=== PATIENT | female | born 1995 | race Caucasian/White ===

== ENCOUNTER 2021-06-11 07:03 | Outpatient (CLI) | payer BC, SELFPAY ==
[2021-06-11 07:26] LABS: Hematocrit 44.6 % (37.0-47.0); Hemoglobin 14.1 g/dL (12.0-15.0); Mean Corpuscular HGB Conc 31.6 g/dl (32-36); Mean Corpuscular Hemoglobin 31.7 pg (26-34); Mean Corpuscular Volume 100.2 fl (80-100); Platelet Count Result 131 k/mm3 (150-375); Red Blood Count 4.45 M/mm3 (4.2-5.4); Red Cell Distribution Width 13.3 % (11.5-14.5); White Blood Count 5.4 K/mm3 (4.5-10.0)
[2021-06-11 07:38] LABS: Alanine Aminotransferase 16 U/L (4-35); Albumin Level 4.7 g/dL (3.5-5.1); Alkaline Phosphatase 44 U/L (38-126); Anion Gap 6 mmol/L (8-16); Aspartate Amino Transferase 23 U/L (14-36); Bilirubin,Total 1.5 mg/dL (0.2-1.3); Blood Urea Nitrogen 8 mg/dL (7-17); Calcium 9.7 mg/dL (8.4-10.2); Carbon Dioxide 26 mmol/L (22-30); Chloride 109 mmol/L (98-107); Cholesterol 118 mg/dL (0-200); Estimated Glomerular Filt Rate > 60; Glucose 89 mg/dL (65-110); HDL Direct 49 mg/dL; Potassium 5.1 mmol/L (3.4-5.0); Sodium 141 mmol/L (137-145); Triglycerides 40 mg/dL (<150)
[2021-06-11 07:49] LABS: LDL Cholesterol Direct 57 mg/dL
[2021-06-11 08:44] LABS: Folic Acid 17.1 ng/mL (2.76->20)
== END 2021-06-11 07:04 | disposition home or self-care (01) ==
LOC: ANHLAB 07:05
PROVIDERS: PCP Physician Assistant; Visit Provider Physician Assistant
DX: Z00.00 Encounter for general adult medical examination without abnormal findings (principal)
CPT/HCPCS: 36415; 80053; 80061; 82607; 82746; 84443; 85027

== ENCOUNTER 2021-07-04 11:36 | Emergency (ER) | payer BC, SELFPAY ==
[2021-07-04 11:45] VITALS: BP 90/60; PULSE 75; RESP 16; TEMP 36.8; O2SAT 100
--- NOTE | 2021-07-04 11:57 | ED.LOWEXIN ---
HPI - Extremity Injury (Lower) General Chief Complaint: Extremity Injury, Lower Stated Complaint: Rt lower leg pain Source: patient and RN notes reviewed Limitations: no limitations History of Present Illness HPI Narrative: The patient, previously on mood meds, presents with right rojas pain. Patient states she bumped her leg against her car prior to arrival; she complains of mild pain and swelling at the middle third of her tibia. No bleeding, deformity, weakness, numbness; symptoms are mild, better with rest or elevation Related Data Home Medications Medication Instructions Recorded Confirmed etonogestrel 68 mg subdermal 1 implant SUBDERMAL ONCE 02/05/21 07/04/21 implant multivitamin with minerals 1 tablet PO DAILY 02/05/21 07/04/21 Allergies Allergy/AdvReac Type Severity Reaction Status Date / Time No Known Allergies Allergy Verified 07/04/21 11:41 Review of Systems Review of Systems: General/Constitutional: No weight loss,fever Eyes: N0: Redness,discharge Ears/Nose/Throat: No: Epistaxis,ear discharge Respiratory: Denies: Hemoptysis Gastrointestinal: No Vomiting, Bleeding-rectal Skin: No Lumps, eruption Neurologic: No Focal Weakness,Sz Hematologic: Denies: Petechiae/Purpura Psychiatric: No: Suicida ideationl All Other Systems: Reviewed and Negative [facility] Past Medical History Medical History Allergies Anemia Depression GERD (gastroesophageal reflux disease) Migraine Family History Family History Father Alcoholism Cerebrovascular accident Mother Asthma Depression Anxiety Cerebrovascular accident Sibling Asthma Social History Social History Smoking status: Never smoker Alcohol intake: current Substance use: unknown Gender identity (if verbalized by the patient): Female Comments At time of signature, agree with nursing past medical, surgical, social and family history. There is no relevant family history pertinent to the presenting complaint Exam Narrative: General Appearance: Well appearing, Conjunctiva clear Ears: External ear normal, Auditory canal normal Nose: Normal nose, Nares clear Mouth/Throat: Normal appearing, Normal lips, Supple Respiratory: Airway patent, No respiratory distress MS tib-fib: Normal strength (mostly intact, limited flexion/extension by pain), Tenderness (anterior, with mild decreased ROM), Swelling (mild anterior), Other (no anterior drawer, no collateral laxity) Skin: Warm, Dry, Normal color Neurological: A&O x3, Speech clear, CN II-XII intact Psychiatric: Normal mood, Normal affect Course Vital Signs Vital signs: Vital Signs Temperature 98.2 F 07/04/21 11:45 Pulse Rate 75 07/04/21 11:45 Respiratory Rate 16 07/04/21 11:45 Blood Pressure 90/60 L 07/04/21 11:45 Pulse Oximetry 100 07/04/21 11:45 Temperature 98.2 F 07/04/21 11:45 Pulse Rate 75 07/04/21 11:45 Respiratory Rate 16 07/04/21 11:45 Blood Pressure 90/60 L 07/04/21 11:45 Pulse Oximetry 100 07/04/21 11:45 Discharge Plan Discharge Clinical Impression: Hematoma, Leg pain, right Patient Disposition: Home, Self-Care Condition: Stable Instructions: Hematoma (ED) Prescriptions: New acetaminophen-codeine 300-30 mg tablet 1 - 1.5 tablet PO HS PRN (Reason: pain) Qty: 10 RF: 0 No Action multivitamin with minerals [Hair,Skin and Nails] Tablet 1 tablet PO DAILY RF: 0 Nexplanon 68 mg implant 1 implant subdermal ONCE RF: 0 escitalopram oxalate 10 mg tablet 10 mg PO DAILY Qty: 90 RF: 3 cyclobenzaprine 10 mg tablet 10 mg PO QHS PRN (Reason: muscle spasm) Qty: 30 RF: 0 alprazolam 0.5 mg tablet 0.5 mg PO BID PRN (Reason: anxiety) Qty: 90 RF: 0 Follow-up/Referrals: Kayode Contreras PA-C [Primary Care Provider] -
== END 2021-07-04 12:15 | disposition home or self-care (01) ==
PROVIDERS: Emergency Provider Emergency Medicine; PCP Physician Assistant
DX: S80.11XA Contusion of right lower leg, initial encounter (principal); W22.8XXA Striking against or struck by other objects, initial encounter; F32.9 Major depressive disorder, single episode, unspecified; K21.9 Gastro-esophageal reflux disease without esophagitis
CPT/HCPCS: 99213; G0463

== ENCOUNTER 2022-08-15 11:47 | Emergency (ER) | payer OTHER, SELFPAY ==
[2022-08-15 12:21] VITALS: BP 109/74; PULSE 74; RESP 20; TEMP 36.4; O2SAT 100
--- NOTE | 2022-08-15 13:07 | ED.DENTAL ---
HPI - Dental/Oral General Chief complaint: Dental/Oral Stated complaint: Lt Facial Swelling Time Seen by Provider: 08/15/22 11:50 Source: patient Mode of arrival: ambulatory Limitations: no limitations History of Present Illness HPI Narrative: 26-year-old female presents to [facility] with complaints of pain and swelling to her left lower jaw and left lower tooth since this morning. Patient reports that she had a deep cleaning by her dental office 4 days ago and started with the symptoms this morning. Patient reports that she attempted to call her dentist this morning but was unable to reach them. Patient denies fever, bodies, chills, nausea, vomiting or diarrhea. Patient has been taking [id number] ibuprofen with minimal relief MD Complaint: tooth pain Location: Tooth # (18) Onset (ago): hour(s) (8) Duration: constant Relieving factors: NSAIDs Exacerbating factors: chewing Treatment prior to arrival: oral analgesic Related Data Home Medications Medication Instructions Recorded Confirmed etonogestrel 68 mg subdermal 1 implant subdermal ONCE 02/05/21 08/15/22 implant (Nexplanon) Allergies Allergy/AdvReac Type Severity Reaction Status Date / Time No Known Allergies Allergy Verified 08/15/22 12:38 Review of Systems Constitutional: Constitutional: Denies chills, Denies fatigue, Denies fever(s) and Denies weakness ENT: Comments: dental pain and jaw swelling Cardiovascular: Cardiovascular: Denies chest pain, Denies rapid heart rate, Denies radiating jaw, neck or arm pain and Denies slow heart rate Respiratory: Respiratory: Denies cough, Denies dyspnea and Denies wheezing Gastrointestinal: Gastrointestinal: Denies diarrhea, Denies nausea and Denies vomiting Integumentary/Breasts: Skin/Breast: Denies rash PMFSH Past Medical History Medical History Allergies Anemia Depression GERD (gastroesophageal reflux disease) Migraine Family History Family History Father Alcoholism Cerebrovascular accident Bipolar 1 disorder Schizophrenia Mother Depression Anxiety COPD (chronic obstructive pulmonary disease) DDD (degenerative disc disease) Sibling Asthma Social History Social History Social History: caffeine use- 2 sodas and 1/2 pot of coffee per day Smoking status: Current every day smoker Alcohol intake: current Alcohol use details: social use- wine coolers Substance use: unknown Additional living arrangements comments: lives with Fiance and 2 children- 1 M and 1 F 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 There is no relevant family history pertinent to the presenting complaint. Exam Const: General: healthy appearing Nutritional Appearance: well nourished Orientation/consciousness: patient oriented x3 Limitations: no limitations HENMT: Head: normal to inspection Face and sinus: normal facial exam Mouth: Yes lip normal and Yes moist mucous membranes Teeth and gingiva: abnormal tooth and associated gingiva (Mild erythema and swelling to gums surrounding tooth #18 and 19. ) Other: No dental abscess noted. There is mild swelling noted to left jaw region. Resp: Effort & Inspection: normal respiratory effort and not labored Auscultation: clear to auscultation bilaterally, no crackles, no rhonchi and no wheezes Cardio: Rate: regular rate Rhythm: regular rhythm Heart sounds: no murmurs Skin: General skin exam: normal color Rashes: no rashes Wounds: no wounds Neuro: General: patient oriented x3 Speech: normal speech Gait exam (Neuro): Normal gait
== END 2022-08-15 13:14 | disposition home or self-care (01) ==
PROVIDERS: Emergency Provider Nurse Practitioner Family; PCP Physician Assistant
DX: K08.89 Other specified disorders of teeth and supporting structures (principal); F17.200 Nicotine dependence, unspecified, uncomplicated; K21.9 Gastro-esophageal reflux disease without esophagitis
CPT/HCPCS: 99213; G0463

== ENCOUNTER 2022-10-11 19:08 | Emergency (ER) | payer SELFPAY ==
[2022-10-11 19:16] VITALS: BP 118/64; PULSE 80; RESP 18; TEMP 36.6; O2SAT 100
--- NOTE | 2022-10-11 19:31 | ED.SKABFB ---
HPI - Skin/Abscess/Foreign Bdy General Chief complaint: Skin/Abscess/Foreign Body Stated complaint: cyst Time Seen by Provider: 10/11/22 19:24 Source: patient and old records reviewed Mode of arrival: ambulatory Limitations: no limitations History of Present Illness HPI narrative: Patient presents today with a 2 day history of an abscess to her right buttock. Reports that is recurrent in the same area. She is currently on a course of clindamycin prescribed by her PCP. She has seen a surgeon in the past for the same abscess, but it was not inflamed at the time so no treatment was given. She is hoping to get the area lanced today as it is difficult for her to sit due to pain. Related Data Home Medications Medication Instructions Recorded Confirmed etonogestrel 68 mg subdermal 1 implant subdermal ONCE 02/05/21 10/11/22 implant (Nexplanon) Allergies Allergy/AdvReac Type Severity Reaction Status Date / Time No Known Allergies Allergy Verified 10/11/22 19:21 Review of Systems Review of Systems: CONSTITUTIONAL: Denies body aches, fever, chills, or sweats. EYES: Denies visual changes, redness, or discharge. ENT: Denies rhinorrhea, congestion, sore throat, or otalgia. CARDIOVASCULAR: Denies chest pain, palpitations, or edema. RESPIRATORY: Denies cough or dyspnea. GASTROINTESTINAL: Denies abdominal pain, nausea, vomiting, or diarrhea. GENITOURINARY: Denies dysuria or hematuria. SKIN: Denies rash, itching, or wounds.+ right buttock abscess MUSCULOSKELETAL: Denies back pain, joint pain, or myalgia. NEUROLOGIC: Denies headache, numbness, tingling, or weakness. PSYCH: Denies depression or anxiety. [facility] Past Medical History Medical History Allergies Anemia Depression GERD (gastroesophageal reflux disease) Migraine Family History Family History Father Alcoholism Cerebrovascular accident Bipolar 1 disorder Schizophrenia Mother Depression Anxiety COPD (chronic obstructive pulmonary disease) DDD (degenerative disc disease) Sibling Asthma Social History Social History Social History: caffeine use- 2 sodas and 1/2 pot of coffee per day Smoking status: Current every day smoker Alcohol intake: current Alcohol use details: social use- wine coolers Substance use: unknown Additional living arrangements comments: lives with Fiance and 2 children- 1 M and 1 F 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 HEAD: Normocephalic, atraumatic. EYES: EOMI. No redness or drainage. Conjunctivae normal. ENT: Mucous membranes pink and moist. NECK: Normal AROM. CHEST: No respiratory distress. EXTREMITIES: Normal range of motion. No edema. SKIN: Warm, dry, no rash. Capillary refill normal. Normal skin turgor. Approximately 1.5 cm area of erythema with induration to the right medial buttock, posterior to the rectum. There is it 1 cm area of fluctuance in the center. Area is tender to palpation. NEURO: No focal deficits. Alert and oriented x3. Gait steady. PSYCH: Normal affect. No signs of depression or anxiety. Course Course Level of Care: Express Care Visit Vital Signs Vital signs: Vital Signs Temperature 97.9 F 10/11/22 19:16 Pulse Rate 80 10/11/22 19:16 Respiratory Rate 18 10/11/22 19:16 Blood Pressure 118/64 10/11/22 19:16 Pulse Oximetry 100 10/11/22 19:16 Oxygen Delivery Room Air 10/11/22 19:16 Temperature 97.9 F 10/11/22 19:16 Pulse Rate 80 10/11/22 19:16 Respiratory Rate 18 10/11/22 19:16 Blood Pressure 118/64 10/11/22 19:16 Pulse Oximetry 100 10/11/22 1
== END 2022-10-11 20:00 | disposition home or self-care (01) ==
PROVIDERS: Emergency Provider Nurse Practitioner; PCP Physician Assistant
DX: L02.31 Cutaneous abscess of buttock (principal); F17.200 Nicotine dependence, unspecified, uncomplicated; K21.9 Gastro-esophageal reflux disease without esophagitis; F32.A Depression, unspecified
CPT/HCPCS: 10061; 99212; G0463

== ENCOUNTER 2022-11-17 13:52 | Emergency (ER) | payer OTHER, SELFPAY ==
[2022-11-17 14:01] VITALS: BP 100/58; PULSE 69; RESP 16; TEMP 37.1; O2SAT 100
--- NOTE | 2022-11-17 14:19 | ED.URI ---
HPI - URI/Sore Throat General Chief Complaint: Upper Respiratory Infection Stated Complaint: Congestion,Cough,Sore Throat Time Seen by Provider: 11/17/22 14:19 Source: patient Mode of arrival: ambulatory Limitations: no limitations History of Present Illness HPI Narrative: 27-year-old female presents with complaint of sore throat, cough, headache, fatigue, body aches, fever for 4 days. Has missed several days work. States she spoke with her primary care physician this morning and had a Z-Ghassan called and pharmacy. States that she has not been able to pick it up. Did to home COVID test or both negative. Her work felt that she needed to be seen and get work note due to calling and again today. All systems reviewed and negative except as noted above. Related Data Home Medications Medication Instructions Recorded Confirmed etonogestrel 68 mg subdermal 1 implant subdermal ONCE 02/05/21 11/17/22 implant (Nexplanon) Allergies Allergy/AdvReac Type Severity Reaction Status Date / Time No Known Allergies Allergy Verified 11/17/22 14:08 Review of Systems Review of Systems: CONSTITUTIONAL: Reports fever, chills, or sweats. EYES: Denies visual changes, redness, or discharge. ENT: reports rhinorrhea, congestion, sore throat. Denies otalgia. CARDIOVASCULAR: Denies chest pain, palpitations, or edema. RESPIRATORY: reports cough. Denies dyspnea. GASTROINTESTINAL: Denies abdominal pain, nausea, vomiting, or diarrhea. GENITOURINARY: Denies dysuria or hematuria. SKIN: Denies rash or itching. MUSCULOSKELETAL: Denies back pain, joint pain, or myalgia. NEUROLOGIC: Denies headache, numbness, or weakness. PSYCHIATRIC: Denies anxiety or depression. All other systems reviewed are negative, except as documented in HPI. [facility] Past Medical History Medical History Allergies Anemia Depression GERD (gastroesophageal reflux disease) Migraine Family History Family History Father Alcoholism Cerebrovascular accident Bipolar 1 disorder Schizophrenia Mother Depression Anxiety COPD (chronic obstructive pulmonary disease) DDD (degenerative disc disease) Sibling Asthma Social History Social History Social History: caffeine use- 2 sodas and 1/2 pot of coffee per day Smoking status: Current every day smoker Alcohol intake: current Alcohol use details: social use- wine coolers Substance use: unknown Additional living arrangements comments: lives with Fiance and 2 children- 1 M and 1 F 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 There is no relevant family history pertinent to the presenting complaint. Exam Narrative: GENERAL: This is a well-nourished, well-developed patient. Patient ill-appearing but no distress. HEAD: normocephalic, atraumatic. EYES: PERRL. Sclera clear/white. Vision is grossly intact. EARS: External ears normal, auditory canals clear and without drainage, TMs normal without perforation. Hearing grossly intact. NOSE: External nose normal with no obvious nasal discharge, nares without redness, no rhinorrhea. THROAT: Mucous membranes moist, Mild erythema posterior pharynx. NECK: Neck supple, non-tender without lymphadenopathy, masses or thyromegaly. CARDIOVASCULAR: Regular rate and rhythm without murmurs, gallops, or rubs. RESPIRATORY: Clear to auscultation. Breath sounds equal bilaterally. No wheezes, rales, or rhonchi. SKIN: warm, Dry, intact with no suspicious lesions or rash, good texture and turgor. NEURO: awake, alert, and oriented to person, place and time. There were no o
== END 2022-11-17 14:37 | disposition home or self-care (01) ==
PROVIDERS: Emergency Provider Nurse Practitioner Family; PCP Physician Assistant
DX: J06.9 Acute upper respiratory infection, unspecified (principal); F17.200 Nicotine dependence, unspecified, uncomplicated; K21.9 Gastro-esophageal reflux disease without esophagitis
CPT/HCPCS: 87081; 87804; 87880; 99213; G0463

== ENCOUNTER 2023-02-24 07:19 | Outpatient (CLI) | payer OTHER, SELFPAY ==
[2023-02-24 07:40] LABS: Hematocrit 43.8 % (37.0-47.0); Hemoglobin 14.2 g/dL (12.0-15.0); Mean Corpuscular HGB Conc 32.4 g/dl (32-36); Mean Corpuscular Hemoglobin 32.1 pg (26-34); Mean Corpuscular Volume 98.9 fl (80-100); Mean Platelet Volume 12.5 fl (7.4-10.4); Platelet Count Result 138 k/mm3 (150-375); Red Blood Count 4.43 M/mm3 (4.2-5.4); Red Cell Distribution Width 13.2 % (11.5-14.5); White Blood Count 5.6 K/mm3 (4.5-10.0)
[2023-02-24 07:51] LABS: Alanine Aminotransferase 18 U/L (6-35); Albumin Level 4.6 g/dL (3.5-5.1); Alkaline Phosphatase 51 U/L (38-126); Anion Gap 4 mmol/L (8-16); Aspartate Amino Transferase 23 U/L (14-36); Bilirubin,Total 1.2 mg/dL (0.2-1.3); Blood Urea Nitrogen 8 mg/dL (7-17); Calcium 8.9 mg/dL (8.4-10.2); Carbon Dioxide 30 mmol/L (22-30); Chloride 108 mmol/L (98-107); Cholesterol 141 mg/dL (0-200); Estimated Glomerular Filt Rate > 60; Glucose 92 mg/dL (65-110); HDL Direct 48 mg/dL; Potassium 4.7 mmol/L (3.4-5.0); Sodium 142 mmol/L (137-145); Triglycerides 58 mg/dL (<150)
[2023-02-24 08:02] LABS: LDL Cholesterol Direct 78 mg/dL
[2023-02-24 08:17] LABS: Vitamin D 25 Hydroxy 39.8 ng/mL
[2023-02-24 08:56] LABS: Folic Acid 14.2 ng/mL (2.76->20)
== END 2023-02-24 07:20 | disposition home or self-care (01) ==
LOC: ANHLAB 07:22
PROVIDERS: PCP Physician Assistant; Visit Provider Physician Assistant
DX: R53.83 Other fatigue (principal); Z00.00 Encounter for general adult medical examination without abnormal findings; F33.8 Other recurrent depressive disorders
CPT/HCPCS: 36415; 80053; 80061; 82306; 82607; 82746; 84443; 85027

== ENCOUNTER 2023-04-18 15:29 | Outpatient (CLI) | payer OTHER, SELFPAY ==
[2023-04-18 16:07] LABS: Add Urine Microscopic? YES; Appearance Urine Cloudy (Clear); Bacteria Urine 4+ /hpf; Bilirubin Urine Negative (Negative); Blood Urine Negative (Negative); Calcium Oxalate Crystals Urine Present /hpf; Color Urine Yellow (Yellow); Glucose Urine UA Negative (Negative); Ketones Urine Negative (Negative); Leukocyte Esterase Ur 2+ LEU/UL (NEGATIVE); Nitrate Urine Positive (Negative); Protein Urine Negative (Negative); RBC Urine 0-2 /hpf (0-2); Specific Grav Ur 1.019 (1.001-1.035); Squamous Epithelial Cell Urine Many /hpf (Few); Urobilinogen Urine 0.2 mg/dL (<2.0); WBC Urine 21-50 /hpf (0-3); pH Urine 6.5 (5.0-9.0)
== END 2023-04-18 15:30 | disposition home or self-care (01) ==
LOC: ANHLAB 15:30
PROVIDERS: PCP Physician Assistant; Visit Provider Physician Assistant
DX: R30.0 Dysuria (principal)
CPT/HCPCS: 81001; 87077; 87086; 87186

== ENCOUNTER 2023-04-29 11:19 | Outpatient (CLI) | payer OTHER, SELFPAY ==
[2023-04-29 11:43] LABS: Appearance Urine Cloudy (Clear); Bacteria Urine 1+ /hpf; Bilirubin Urine Negative (Negative); Blood Urine Negative (Negative); Color Urine Yellow (Yellow); Glucose Urine UA Negative (Negative); Ketones Urine Negative (Negative); Leukocyte Esterase Ur Trace LEU/UL (NEGATIVE); Nitrate Urine Negative (Negative); Non Pathogenic Casts 0-2; Protein Urine Negative (Negative); RBC Urine 0-2 /hpf (0-2); Specific Grav Ur 1.018 (1.001-1.035); Squamous Epithelial Cell Urine Moderate /hpf (Few); WBC Urine 0-5 /hpf (0-3); pH Urine 6.5 (5.0-9.0)
[2023-04-29 11:46] LABS: Add Urine Microscopic? YES
== END 2023-04-29 11:20 | disposition home or self-care (01) ==
LOC: ANHLAB 11:19
PROVIDERS: PCP Physician Assistant; Visit Provider Physician Assistant
DX: R30.0 Dysuria (principal)
CPT/HCPCS: 81001; 87077; 87086; 87186

== ENCOUNTER 2024-11-30 11:20 | Emergency (ER) | payer SELFPAY ==
[2024-11-30 11:33] VITALS: BP 106/62; PULSE 85; RESP 16; TEMP 37; O2SAT 100
[2024-11-30 11:55] LABS: EDCOVIDSCREEN Negative (Negative); EDINFLUASCREEN Negative (Negative); EDINFLUBSCREEN Negative (Negative)
--- NOTE | 2024-11-30 12:41 | ED.URI ---
HPI - URI/Sore Throat General Chief Complaint: Upper Respiratory Infection Stated Complaint: Fever/Bodyaches/Cough Time Seen by Provider: 11/30/24 12:31 Source: patient and RN notes reviewed Mode of arrival: ambulatory Limitations: no limitations History of Present Illness HPI Narrative: Patient presents today with a 2 day history of cough, shortness of breath, chest wall pain, body aches, chills, sweats, nausea, decreased appetite. Denies fever. She has tried Tylenol without relief. Reports has been is sick with similar symptoms. Related Data Home Medications ?Medication ?Instructions ?Recorded ?Confirmed ?Last Taken ?Type etonogestrel 68 mg subdermal 1 implant subdermal ONCE 02/05/21 12/17/22 Unknown History implant (Nexplanon) Allergies Allergy/AdvReac Type Severity Reaction Status Date / Time nitrofurantoin AdvReac Intermediate Nausea Verified 11/30/24 11:26 Review of Systems Review of Systems: CONSTITUTIONAL: Denies fever. + body aches chills EYES: Denies visual changes, redness, or discharge. ENT: Denies rhinorrhea, congestion, sore throat, or otalgia. CARDIOVASCULAR: Denies chest pain, palpitations, or edema. RESPIRATORY: +, shortness of breath, chest wall pain GASTROINTESTINAL: Denies abdominal pain, vomiting, or diarrhea.+ nausea decreased appetite GENITOURINARY: Denies dysuria or hematuria. SKIN: Denies rash, itching, or wounds. MUSCULOSKELETAL: Denies back pain, joint pain, or myalgia. NEUROLOGIC: Denies headache, numbness, tingling, or weakness. PSYCH: Denies depression or anxiety. [facility] Past Medical History Medical History Migraine GERD (gastroesophageal reflux disease) Depression Anemia Allergies Family History Family History Father Alcoholism Cerebrovascular accident Bipolar 1 disorder Schizophrenia Mother Depression Anxiety COPD (chronic obstructive pulmonary disease) DDD (degenerative disc disease) Sibling Asthma Social History Social History Social History: caffeine use- 2 sodas and 1/2 pot of coffee per day Smoking status: Current every day smoker Alcohol intake: current Alcohol use details: social use- wine coolers Substance use: unknown Lack of Transportation: No Lack of Food: Never True Current Housing: I Have Housing Concerned About Future Housing: No Difficulty Paying Gas/Electric Bills: No Difficulty Paying for Meds: No Currently Unemployed: No Education: Trade/Vocational Certificate Difficulty w/ Childcare or Family Care: No Living arrangements: with family Additional living arrangements comments: lives with Fiance and 2 children- 1 M and 1 F Occupation/Education: occupation Additional occupation/education comments: [employer] Gender identity (if verbalized by the patient): Female Sexual Orientation (if Verbalized by the Patient): Straight or Heterosexual Comments At time of signature, I have reviewed and agree with nursing past medical, surgical, social and family history unless otherwise noted. Please see nursing chart for further information. There is no relevant family history pertinent to the presenting complaint Exam Narrative: GENERAL: Ill-appearing, well-nourished, and in no acute distress. HEAD: Normocephalic, atraumatic. EYES: EOMI. No redness or drainage. Conjunctivae normal. ENT: Mucous membranes pink and moist. Nares congested with rhinorrhea. TMs normal bilaterally. Throat normal. Uvula midline. NECK: Normal AROM. Supple. No lymphadenopathy. CHEST: No respiratory distress. Slight inspiratory wheeze in the left lower lobe, otherwise clear. HEART: Regular rate and rhythm. No murmur appreciated. EXTREMITIES: Normal range of motion. No edema. SKIN: Warm, dry, no rash. Capillary refill normal. Normal skin turgor. NEURO: No focal deficits. Alert and oriented x3. Gait steady. PSYCH: Normal affect. No signs of depression or anxiety. Course Course Level of Care: Express Care Visit Vital Signs Vital signs: Vital Signs Temperature 98.6 F 11/30/24 11:33 Pulse Rate 85 11/30/24 11:33 Respiratory Rate 16 11/30/24 11:33 Blood Pressure 106/62 11/30/24 11:33 Pulse Oximetry 100 11/30/24 11:33 Temperature 98.6 F 11/30/24 11:33 Pulse Rate 85 11/30/24 11:33 Respiratory Rate 16 11/30/24 11:33 Blood Pressure 106/62 11/30/24 11:33 Pulse Oximetry 100 11/30/24 11:33 Reviewed MDM - URI/Sore Throat MDM Narrative Medical decision making narrative: Influenza and COVID negative. Symptoms likely viral in etiology. Discussed [id number] medication use and duration of illness. Prescription for an albuterol inhaler and benzonatate sent to pharmacy. Anticipatory guidance given. Differential Diagnosis Differential diagnosis: Likely upper respiratory infection, viral infection, bronchitis, influenza and other (COVID-19) Lab Data Attestation: I reviewed the patient's lab results. Labs: Lab Results 11/30/24 Range/Units 11:49 POC Influenza A Ag Negative (Negative) POC Influenza B Ag Negative (Negative) POC SARS CoV-2 Ag Negative (Negative) Critical Care Time Critical Care Time Critical Care Time: No Discharge Plan Discharge Clinical Impression: Upper respiratory infection Qualifiers: URI type: unspecified URI Qualified Code(s): J06.9 - Acute upper respiratory infection, unspecified Patient Disposition: Home, Self-Care Condition: Stable Instructions: Upper Respiratory Infection (DC) Additional Instructions: Your influenza and COVID-19 tests are negative. Your symptoms are likely due to a viral illness, which is not treated with antibiotics. Virus symptoms can last for up to 7-10days. Take Tylenol or ibuprofen for pain or fever. Use albuterol inhaler and benzonatate if needed. Rest and stay hydrated. Follow up with your PCP in 7 days if symptoms are not improving. Go to the ER immediately if you develop shortness of breath, difficulty swallowing, or any other concerning symptoms. Patient Language: [place] Prescriptions: New benzonatate 200 mg capsule 200 mg PO TID PRN (Reason: cough) Qty: 20 0RF albuterol sulfate 90 mcg/actuation HFA aerosol inhaler 2 inh inhalation Q4-6H PRN (Reason: shortness of breath or wheezing) Qty: 8.5 0RF (DME) B[employer]he[employer] MDI Spacer Spacer See Rx Instructions .ROUTE .MEDSUPPLY Qty: 1 0RF Rx Instructions: As directed No Action Nexplanon 68 mg implant 1 implant subdermal ONCE Rx Instructions: as a single dose alprazolam 0.5 mg tablet 0.5 mg PO BID PRN (Reason: anxiety) Qty: 60 0RF cyclobenzaprine 10 mg tablet 10 mg PO QHS PRN (Reason: muscle spasm) Qty: 90 0RF bupropion HCl 300 mg tablet extended release 24 hr 300 mg PO QAM Qty: 90 3RF valacyclovir 1 gram tablet 1,000 mg PO TID Qty: 21 0RF hydroxyzine HCl 25 mg tablet 25 mg PO QID PRN (Reason: itching) Qty: 60 0RF escitalopram oxalate 20 mg tablet 20 mg PO DAILY Qty: 90 1RF ondansetron HCl 8 mg tablet 8 mg PO Q8H PRN (Reason: nausea and vomiting) Qty: 14 0RF amoxicillin-pot clavulanate 875-125 mg tablet 1 tablet PO BID Qty: 14 0RF ropinirole 0.25 mg tablet See Rx Instructions .ROUTE .COMPLEX Qty: 77 0RF Rx Instructions: Start 1 tab PO qhs x 1 week, then take 2 tabs qhs x 1 week, then increase to 4 tabs qhs thereafter Follow-up/Referrals: PHYSICIAN,FRUIT HARVESTER [Primary Care Provider] - Stand Alone Forms: Work/School Release IP Time of Disposition: 12:49
== END 2024-11-30 12:51 | disposition home or self-care (01) ==
PROVIDERS: Emergency Provider Nurse Practitioner
DX: J06.9 Acute upper respiratory infection, unspecified (principal); K21.9 Gastro-esophageal reflux disease without esophagitis; F17.210 Nicotine dependence, cigarettes, uncomplicated; Z20.822 Contact with and (suspected) exposure to COVID-19
CPT/HCPCS: 87426; 87804; 99213; G0463

== ENCOUNTER 2024-12-03 14:13 | Emergency (ER) | payer SELFPAY ==
[2024-12-03 14:48] VITALS: BP 98/62; PULSE 62; RESP 18; TEMP 36.7; O2SAT 100
--- OUTSIDE RECORDS SUMMARY | 2024-12-03 15:21 | XMS_ITS | Clinical Summary ---
Author Organization [facility] Address [address] [place] [address] Care Team Providers Care Information Technology Teacher Name Role Phone Kayode Contreras PA-C Primary Care Provide r Source Comments [facility],non-owned Affiliates and Associated Physician Practices is amultiple site organization consisting of ambulatory clinics and hospital sitesin [place], [place], [place] and [place]. This disclosure is being madepursuant to the Care Everywhere program and may not contain all information available regarding this patient. Last updated 18.[facility] Allergies Active Allergy Reactions Criticality Noted Date Comments Amoxicillin Nausea and/or Vomiting 01/04/2012 Medications * Be aware that medications may not be up to date on this document. Alwaysverify current medications with the patient. Medication Sig Dispensed Refills Start Date End Date Status escitalopram (Lexapro) 10 MG tablet Take 10 mg by mouth once daily 05/03/2022 Active ALPRAZolam (Xanax) 0.5 MG tablet Take 0.5 mg by mouth 2 times daily as needed anxiety 05/17/2022 Active cyclobenzaprine (Flexeril) 10 MG tablet TAKE 1 TABLET BY MOUTH EVERY NIGHT AT BEDTIME NEEDED FOR MUSCLE SPASM 12/25/2021 Active etonogestrel (Nexplanon) 68 MG implant Active Social History Tobacco Use Types Packs/Day Years Used Date Smoking Tobacco: Never Smokeless Tobacco: Never Sex and Gender Information Value Date Recorded Sex Assigned at Not on file Gender Identity Not on file Sexual Orientation Not on file Plan of Treatment Health Maintenance Due Date Last Done Comments PAP SMEAR 1993 HIV SCREENING 2008 HEPATITIS C SCREENING 10/18/2011 DTAP/TDAP/TD VACCINES (1 - Tdap) 2012 HEPATITIS B VACCINE (1 of 3 - 19+ 3-dose series) 2012 COVID-19 VACCINE (1 - 2023-2 5 season) 2024 INFLUENZA VACCINE (#1) 2024 08/21/2019 DEPRESSION SCREENING 11/07/2024 ZOSTER VACCINE (1 of 2) 2043 HIB VACCINE Aged Out No longer eligi ble based on patient's age to complete this topic HPV VACCINE Aged Out No longer eligi ble based on patient's age to complete this topic MENINGOCOCCAL (Group B) VACCINE Aged Out No longer eligible based on patient's age to complete this topic MENINGOCOCCAL VACCINE Aged Out No debby gilberto eligible based on patient's age to complete this topic PNEUMOCOCCAL VACCINE Aged Out No long er eligible based on patient's age to complete this topic Care Teams Information Technology Teacher Relationship Specialty Start Date End Date Kayode Contreras PA-C [address] [place] [address] PCP - General 06/23/22
--- OUTSIDE RECORDS SUMMARY | 2024-12-03 15:21 | XMS_ITS | Clinical Summary ---
Author Organization [facility] Address [address] [place] [address]. [place] [address] [place] [address] Care Team Providers Care Airline Stewardess Name Role Phone Kayode Contreras PA-C Primary Care Provider [phone] Allergies No known active allergies Medications buPROPion XL (WELLBUTRIN XL) 300 MG 24 hr tablet Take 1 tablet (300 mg total) by mouth every morning. 05/19/2023 Active cyclobenzaprine (FLEXERIL) 10 MG tablet Take 1 tablet (10 mg total) by mouth nightly as needed. FOR MUSCLE SPASMS 07/29/2022 Active hydrOXYzine (ATARAX) 25 MG tablet TAKE 1 TABLET BY MOUTH FOUR TIMES DAILY NEEDED FOR ITCHING 02/16/2023 Active diclofenac EC (VOLTAREN) 75 MG tabletIndicatio ns:Acute pain of right shoulder Take 1 tablet (75 mg total) by mouth 2 (two) times daily. 60 tablet 06/06/2023 Active Active Problems No known active problems Encounters Date Type Department Care Team Description 11/30/2024 10:35 PM INSTRUCTOR PHYSICAL - 12/01/2024 1:34 AM [facility] Emergency [facility] Emergency Room [id number] [place], [place] [id number] Constantin Izquierdo MD Flu Like Symptoms Discharge Disposition: Home or Self Care (Routine Discharge) 11/30/2024 Travel from Last 3 Months Immunizations Name Administration Dates Next Due Dtap (Acel-Immune) 07/03/1999,01/18/1995, 994,01/15/1994 Hepatitis B Pediatric 01/18/1995,07/09/1994,11/08 Hib (Generic) 01/18/1995,07/09/1994,01/15/1994 Influenza (Generic) 08/21/2019,09/02/2016 MMR (MMRII) 07/03/1999,01/18/1995 Polio IPV (Ipol) 07/03/1999 Polio Opv (Generic) 01/18/1995,07/09/1994,1993 Tdap (Generic) 12/01/2016 Social History Tobacco Use Types Packs/Day Years Used Date Smoking Tobacco: Every Day Cigarettes Passive Smoke Exposure: Current Smokeless Tobacco: Never Tobacco Cessation:Ready to Q uit: No; Counseling Given: Yes Alcohol Use Standard Drinks/Week Comments Not Currently 0 (1 standard drink = 0.6 oz pur e alcohol) PHQ-2 Answer Date Recorded Patient Health Questionnaire-2 Score 1 06/06/2023 Comments No Sex and Gender Information Value Date Recorded Sex Assigned at Female 11/30/2024 11:30 PM INSTRUCTOR PHYSICAL Legal Sex Female 10:11 AM CDT Gender Identity Not on file Sexual Orientation Not on file Last Filed Vital Signs Vital Sign Reading Time Taken Comments Blood Pressure 99/60 12/01/2024 1:33 AM INSTRUCTOR PHYSICAL Pulse 86 12/01/2024 1:33 AM INSTRUCTOR PHYSICAL Temperature 37.2 ??C (98.9 ??F) 12/01/2024 1:33 AM CS T Respiratory Rate 18 12/01/2024 1:33 AM INSTRUCTOR PHYSICAL Oxygen Saturation 96% 12/01/2024 1:33 AM INSTRUCTOR PHYSICAL Inhaled Oxygen Concentration - - Weight 51.3 kg (113 lb) 11/30/2024 10:39 PM INSTRUCTOR PHYSICAL Height 167.6 cm (5' 6 ) 11/30/2024 10:39 PM INSTRUCTOR PHYSICAL Body Mass Index 18.24 11/30/2024 10:39 PM INSTRUCTOR PHYSICAL Plan of Treatment Health Maintenance Due Date Last Done Comments Annual Physical 1996 Pneumococcal Vaccine: Pediatrics (0 to 5 Years) and At-Risk Patients (6 to 64 Years) (1 of 2 - PCV) 1999 Hepatitis C 2011 Cervical Cancer Screening Pap Smear (Age 30 to 64) Every 3 Years 03/12/2022 03/12/2019 Cervical Cancer Screening Pap with HPV Testing (Age 30 to 64) Every 5 Years 2023 03/12/2019 Cervical Cancer Screening with HPV 2023 COVID-19 Vaccine ( - season) 2024 11/28/2021, 10/13/2021 Influenza Adult (#1) 2024 08/21/2019, 09/02/20 16 PHQ-2 (Physician [place]) 11/07/2024 06/06/2023 DTaP, Tdap and Td Vaccines (6 - Td or Tdap) 12/01/2026 12/01/2016, 07/03/1999, 01/18/1995, Additional history exists Hepatitis B Vaccines Completed 01/18/1995, 07/09/1994, 1993 HPV Vaccines Aged Out No longer eligi ble based on patient's age to complete this topic Meningococcal B Vaccine Aged Out No l onger eligible based on patient's age to complete this topic Meningococcal Vaccine Aged Out No debby gilberto eligible based on patient's age to complete this topic RSV Immunizations Under 20 Months Aged Out No longer eligible based on patient's age to complete this topic Procedures Procedure Name Priority Date/Time Associated Diagnosis Comments XR CHEST PA+LAT STAT 12/01/2024 12:14 AM INSTRUCTOR PHYSICAL from Last 3 Months Results * XR CHEST PA+LAT (12/01/2024 12:14 AM INSTRUCTOR PHYSICAL) Anatomical Region Laterality Modality Chest Radiographic Pamela ging 12/01/2024 12:2 0 AM INSTRUCTOR PHYSICAL Impressions 12/01/2024 12:21 AM INSTRUCTOR PHYSICAL IMPRESSION: No radiographic evidence is seen to suggest acute cardiopulmonary abnormality. Referred By: ?? Interpreted By: Shabbir Stout DO, 12/01/2024 12:20 AM Narrative 12/01/2024 12:21 AM INSTRUCTOR PHYSICAL [facility] [address] [place] [address] Examination: XR CHEST PA+LAT Exam time: 12/01/2024 12:08 AM Clinical history: Dry cough, congestion, chest pain, and shortness of breath for the last couple days. Comparison: None. Technique: PA and lateral views of the chest. Findings: The cardiomediastinal silhouette is normal in size. ??Pulmonary vasculature is appropriately distributed. ??The lungs are clear of active opacities. ??There is no pleural effusion or pneumothorax. ??Note is made of prominent transverse processes at C7. Procedure Note Shabbir Stout DO - 12/01/2024 [facility] [address] [place] [address] Examination: XR CHEST PA+LAT Exam time: 12/01/2024 12:08 AM Clinical history: Dry cough, congestion, chest pain, and shortness ofbreath for the last couple days. Comparison: None. Technique: PA and lateral views of the chest. Findings: The cardiomediastinal silhouette is normal in size. Pulmonary vasculatureis appropriately distributed. The lungs are clear of active opacities.There is no pleural effusion or pneumothorax. Note is made of prominenttransverse processes at C7. IMPRESSION: No radiographic evidence is seen to suggest acute cardiopulmonaryabnormality. Referred By: Interpreted By: Shabbir Stout DO, 12/01/2024 12:20 AM us Constantin Izquierdo MD GENERAL IMAGING Final Resu lt from Last 3 Months Care Teams Airline Stewardess Relationship Specialty Start Date End Date Kayode Contreras PA-C [address] [address] PCP - General PHYSICIAN BULK INTAKE WORKER 07/26/22
--- OUTSIDE RECORDS SUMMARY | 2024-12-03 15:21 | XMS_ITS | Patient Health Summary ---
Author Organization [facility] Address [address] [place] [address] Care Team Providers Care Hop Trainer Name Role Phone Kayode Contreras PA-C Primary Care Provide r Note from [facility],non-owned Affiliates and Associated Physician Practices is amultiple site organization consisting of ambulatory clinics and hospital sitesin [place], [place] and [place]. This disclosure is being madepursuant to the Care Everywhere program and may not contain all information available regarding this patient. Last updated 18.[facility] Allergies * Amoxicillin(Nausea and/or Vomiting) Medications * Be aware that medications may not be up to date on this document. Alwaysverify current medications with the patient. * escitalopram (Lexapro) 10 MG tablet(Started 05/03/2022) Take 10 mg by mouth once daily * ALPRAZolam (Xanax) 0.5 MG tablet(Started 05/17/2022) Take 0.5 mg by mouth 2 times daily as needed anxiety * cyclobenzaprine (Flexeril) 10 MG tablet(Started 12/25/2021) TAKE 1 TABLET BY MOUTH EVERY NIGHT AT BEDTIME NEEDED FOR MUSCLE SPASM * etonogestrel (Nexplanon) 68 MG implant Social History Tobacco Use Types Packs/Day Years Used Date Smoking Tobacco: Never Smokeless Tobacco: Never Sex and Gender Information Value Date Recorded Sex Assigned at Not on file Gender Identity Not on file Sexual Orientation Not on file Procedures * IA TANGNTL BX SKIN SINGLE LES(Performed 06/28/2022) Performed for Neoplasm of uncertain behavior of skin * DERMATOPATHOLOGY(Performed 06/24/2022) Performed for Neoplasm of uncertain behavior of skin Results * IA TANGNTL BX SKIN SINGLE LES (06/28/2022 11:40 PM CDT) Narrative Katiana Molina MD - 06/28/2022 11:40 PM CDT Katiana Molina MD ? 06/28/2022 11:41 PM Risks, benefits and alternatives to shave biopsy were discussed with the patient. Verbal consent was obtained. Encounter Diagnoses Name Primary? ? ? Neoplasm of uncertain behavior of skin Yes ? ? Multiple nevi ? Lentigines ?? Location: L chest Skin prep: Alcohol Anesthesia: 1% lidocaine with epinephrine Hemostasis: Aluminum chloride Dressing and wound care discussed. Specimen(s) placed in a patient labeled container and sent to [facility] Dermatopathology. Patient agrees to phone call for results and message if not available. Katiana Molina MD Katiana Molina MD PROCEDURE/JUAN M R SURGICAL ORDERABLES * DERMATOPATHOLOGY (Specimen Count = 1) (06/24/2022 12:00 AM CDT) Case Report Dermatopathology Report ? Case: [id number] ? Authorizing Provider: ??Katiana Molina, ?? Collected: ? 06/24/2022 12:00 AM ? MD ? Ordering Location: ? [facility] ?Received: ?06/25/2022 08:50 AM ? Dermatology ? Pathologist: ? Katiana Molina, ? MD ? Specimen: ?Skin, left chest ? 2 5:04 PM CDT DERMATOPATHOLOGY LABORATORY Final Diagnosis Specimen A. SKIN, left chest: COMPOUND NEVUS WITH CONGENITAL FEATURES, IRRITATED (D22.5) 2 5:04 PM CDT DERMATOPATHOLOGY LABORATORY Clinical History Irritated Nevus, R/O Atypia 2 5:04 PM CDT DERMATOPATHOLOGY LABORATORY Gross Description Specimen A: Received is one formalin filled container labeled with the patient's name and designated left chest. The specimen consists of a shave biopsy measuring [id number]. Jar 0. 2 5:04 PM CDT DERMATOPATHOLOGY LABORATORY Microscopic Description Specimen A. SKIN, left chest: There is melanin pigment in the stratum corneum. There are nests of melanocytes at the dermal-epidermal junction and within the dermis. Some melanocytes are splayed between collagen bundles and are localized around adnexal structures. 2 5:04 PM CDT DERMATOPATHOLOGY LABORATORY Disclaimer An external and internal positive and negative controls are appropriate for the histochemical, immunohistochemical and immunofluorescence stain(s) in this case (if any), except where stated explicitly. The performance characteristics of the stain(s) cited in this report were developed and its performance characteristic determined by the Dermatopathology Laboratory at [facility], directed by Dr. Alecia Bustos. These tests need not be, and therefore are not, approved by the [place] Food and Drug Administration. The tests are used for clinical purposes. Billing Codes Specimen Charges Stain Charges 43668 1 2 5:04 PM CDT DERMATOPATHOLOGY LABORATORY Embedded Images 2 5:04 PM CDT DERMATOPATHOLOGY LABORATORY Pathology/Cytolog y TISSUE SPECIMEN FROM SKIN / Unknown 06/24/2022 06/25/2022 8:50 AM CDT Katiana Molina MD LAB - PATHOLOG Y/CYTOLOGY ORDERABLES Performing Organization Address [facility]/State/ZIP Co de Phone Number DERMATOPATHOLOGY LABORATORY [facility] - Department of Dermatology [facility] Specialized Medicine [address] [place] [address], [address] [phone] Care Teams Hop Trainer Relationship Specialty Start Date End Date Kayode Contreras PA-C [address] [place] [address] PCP - General 06/23/22
--- OUTSIDE RECORDS SUMMARY | 2024-12-03 15:21 | XMS_ITS | Clinical Summary ---
Author Organization [facility] [address] [facility] Address [address] [place] [address] Care Team Providers Care Community Development Director Name Role Phone [facility], External Provider Primary Care Provider Un available Allergies No known active allergies Medications ibuprofen (ADVIL;MOTRIN) 100 mg/5 mL suspension Take by mouth every 6 hours as needed for Pain, Mild. Active buPROPion HCl (WELLBUTRIN XL) 150 mg Extended Release 24 hour tablet Take 1 Tablet (150 mg) by mouth daily tooling mechanic. 30 Tablet 3 9 Active etonogestrel (NEXPLANON) 68 mg Implant Inject by subcutaneous injection. Active Active Problems Problem Noted Date Diagnosed Date Tobacco abuse 03/12/2019 Anxiety and depression 03/12/2019 Immunizations Immunization Administration Dates Next Due Influenza Seasonal Unspecified Formulation IM Family History Medical History Relation Name Comments Healthy Father Healthy Mother Relation Name Status Comments Father Mother Social History Tobacco Use Types Packs/Day Years Used Date Smoking Tobacco: Every Day Cigarettes Comments No Sex and Gender Information Value Date Recorded Sex Assigned at Not on file Legal Sex Female 1:47 PM CDT Gender Identity Not on file Sexual Orientation Not on file Last Filed Vital Signs Vital Sign Reading Time Taken Comments Blood Pressure 102/58 03/12/2019 3:20 PM CDT Pulse - - Temperature - - Respiratory Rate - - Oxygen Saturation - - Inhaled Oxygen Concentration - - Weight 49.4 kg (109 lb) 03/12/2019 3:20 PM CDT Height 163.8 cm (5' 4.5 ) 03/12/2019 3:20 PM CDT Body Mass Index 18.42 03/12/2019 3:20 PM CDT Plan of Treatment Health Maintenance Due Date Last Done Comments DTAP/TDAP/TD VACCINES (1 - Tdap) 2012 HEPATITIS B VACCINES (1 of 3 - 19+ 3-dose series) 2012 CERVICAL CANCER SCREENING 2023 03/12/2019 INFLUENZA VACCINE (#1) 2024 08/21/2019 HPV VACCINES Aged Out No longer eligi ble based on patient's age to complete this topic Procedures Procedure Name Priority Date/Time Associated Diagnosis Comments CERV/VAG CYTO AGE BASED SCREEN PAP W CT/NG, TRICH Routine 03/12/2019 3:56 PM CDT from Last 3 Months or Most Recently Relevant to Health Maintenance Results * CERV/VAG CYTO AGE BASED SCREEN PAP W CT/NG, TRICH (03/12/2019 3:56 PM CDT) CASE REPORT Gynecologic Cytology Report ? Case: [id number] ? Authorizing Provider: ??Benita Pathak, DO ? Collected: ? 03/12/2019 03:56 PM ? Ordering Location: ? [facility] ? Received: ?03/12/2019 06:30 PM ? [address] ? First Screen: ?Stefany Loco ? Specimen: ?LB PAP TP PROT, Endocervix ? 03/16/2019 9:52 AM CDT [facility] Community Engagement Manager Interpretation Negative For Intraepithelial Lesion Or Malignancy 03/16/2019 9:52 AM T [facility] Comment: Routine follow-up is suggested. Community Engagement Manager Specimen Adequacy Satisfactory for evaluation, endocervical/summers sformation zone component present 03/16/2019 9:52 AM T [facility] ASSEMBLER FOR PULLER OVER MACHINE Clinical Information Nexplanon in use 03/16/2019 9:52 AM T [facility] Community Engagement Manager Educational Note 03/16/2019 9:52 AM T [facility] Comment: Gynecological cytology is a screening procedure subject to both false negative and false positive results. It is most reliable when a satisfactory sample is obtained on a regular repetitive basis. Results must be interpreted in the context of historic and current clinical information. ?? Recommend patient management according to the 2012 ASCCP Consensus Guidelines, ([place]: Cancer J Clin, 62(3); 147-172,2012) EMBEDDED IMAGE 03/16/2019 9:52 AM T [facility] Genital SWAB OF ENDOCERVIX / Unknown Collection / Unknown 03/12/2019 3:56 PM CDT 03/12/2019 6:30 PM CDT Benita Pathak DO PATHOLOGY/CYTOLOGY ORDERABL ES Final Result [facility] CLIA# [id number] [place] [address] from Last 3 Months or Most Recently Relevant to Health Maintenance Insurance [place] [id number] Care Teams Community Development Director Relationship Specialty Start Date End Date [facility], External Provider [address] [place] [address] PCP - General 03/12/19
--- OUTSIDE RECORDS SUMMARY | 2024-12-03 15:21 | XMS_ITS | Referral Summary ---
Author Organization [facility] Address [address] [address] Care Team Providers Care Tip Printer Name Role Phone Kayode Contreras PA-C Primary Care Provide r Source Comments [email or web address],non-owned Affiliates and Associated Physician Practices is amultiple site organization consisting of ambulatory clinics and hospital sitesin [place], [place], [place] and [place]. This disclosure is being madepursuant to the Care Everywhere program and may not contain all information available regarding this patient. Last updated 18.[email or web address] Allergies Active Allergy Reactions Criticality Noted Date [...] Orientation Not on file Plan of Treatment Not on file Care Teams Tip Printer Relationship Specialty Start Date End Date Kayode Contreras PA-C [address] [place] [id number] PCP - General 06/23/22
--- NOTE | 2024-12-03 15:42 | ED_ITS ---
HPI - URI/Sore Throat General Chief Complaint: Upper Respiratory Infection Stated Complaint: cough Time Seen by Provider: 12/03/24 15:42 Source: patient, RN notes reviewed and old records reviewed Mode of arrival: ambulatory Limitations: no limitations History of Present Illness HPI Narrative: patient presents with complaints of URI symptoms that been present for 5 days. since the beginning of her illness, she has been to [facility] emergency department, and now here. Through the course of her illness she has been prescribed albuterol. She reports that she a negative chest x-ray as well as negative COVID, negative flu, negative strep. She said that she had 1 dose of steroids while in the emergency department. She is concerned because she still has a cough. Two days ago she for was 102.8 at its highest, has not had any fever since. She does report that she is taking Tylenol. Says most bothersome symptom today is cough Related Data Home Medications ?Medication ?Instructions ?Recorded ?Confirmed ?Last Taken ?Type etonogestrel 68 mg subdermal 1 implant subdermal ONCE 02/05/21 12/17/22 Unknown History implant (Nexplanon) Allergies Allergy/AdvReac Type Severity Reaction Status Date / Time nitrofurantoin AdvReac Intermediate Nausea Verified 12/03/24 16:02 Review of Systems Review of Systems: All systems reviewed & are unremarkable except as noted in HPI and below Constitutional: Constitutional: Reports as per HPI, Reports no additional constitutional complaints, Reports fever(s) and Reports lethargy ENT: Reports system reviewed and no additional complaints, except as documented, Reports nasal congestion and Reports nasal discharge Cardiovascular: Cardiovascular: Reports no additional cardiovascular complaints Respiratory: Respiratory: Reports no additional respiratory complaints and Rep orts cough Gastrointestinal: Gastrointestinal: Reports no additional gastrointestinal complaints [facility] Past Medical History Medical History Migraine GERD (gastroesophageal reflux disease) Depression Anemia Allergies Family History Family History Father Alcoholism Cerebrovascular accident Bipolar 1 disorder Schizophrenia Mother Depression Anxiety COPD (chronic obstructive pulmonary disease) DDD (degenerative disc disease) Sibling Asthma Social History Social History Social History: caffeine use- 2 sodas and 1/2 pot of coffee per day Smoking status: Current every day smoker Alcohol intake: current Alcohol use details: social use- wine coolers Substance use: unknown Lack of Transportation: No Lack of Food: Never True Current Housing: I Have Housing Concerned About Future Housing: No Difficulty Paying Gas/Electric Bills: No Difficulty Paying for Meds: No Currently Unemployed: No Education: Trade/Vocational Certificate Difficulty w/ Childcare or Family Care: No Living arrangements: with family Additional living arrangements comments: lives with Fiance and 2 children- 1 M and 1 F Occupation/Education: occupation 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 There is no relevant family history pertinent to the patient complaint. Exam Const: General: cooperative, no acute distress, alert and awake Orientation/consciousness: oriented to person, oriented to place and oriented to time HENMT: Head: normal to inspection Ears: TM's normal bilaterally Mouth: Yes moist mucous membranes Throat: posterior oropharynx normal Resp: Effort & Inspection: normal respiratory effort and able to speak in complete sentences Auscultation: clear to auscultation bilaterally, no crackles, no rales, no rhonchi and no wheezes Cardio: Palpation: normal PMI Rate: regular rate Rhythm: regular rhythm Heart sounds: S1 normal heart sound present and S2 normal heart sound present Neuro: General: oriented to person, oriented to place and oriented to time Cranial nerves: Yes CN's II-XII intact bilaterally Psych: Appearance: grossly normal Thought process: Normal thought process present Insight: Good insight present (Psych) Judgement: Good judgement present (Psych) Course Course Level of Care: Express Care Visit Vital Signs Vital signs: Vital Signs Temperature 98.0 F 12/03/24 14:48 Pulse Rate 62 12/03/24 14:48 Respiratory Rate 18 12/03/24 14:48 Blood Pressure 98/62 L 12/03/24 14:48 Pulse Oximetry 100 12/03/24 14:48 Oxygen Delivery Room Air 12/03/24 14:48 Temperature 98.0 F 12/03/24 14:48 Pulse Rate 62 12/03/24 14:48 Respiratory Rate 18 12/03/24 14:48 Blood Pressure 98/62 L 12/03/24 14:48 Pulse Oximetry 100 12/03/24 14:48 Oxygen Delivery Room Air 12/03/24 14:48 Reviewed MDM - URI/Sore Throat MDM Narrative Medical decision making narrative: reassuring physical exam today. Patient reports that 2 days ago she had negative chest x-ray, negative COVID, negative flu, negative strep. She is using albuterol inhaler. Will discharge home with steroid burst. Patient advised follow with primary care provider. Emergency department for new or worse symptoms. Discharge instructions reviewed with patient, as well as provided in writing per nursing staff. The instructions also include specific and strict return/GO TO THE ER as well as f/u information. All questions have been answered, and the patient deny any further questions with discharge and discharge plan. Some parts of this dictation were generated by voice recognition software and may contain typographical and/or grammatical inaccuracies. Differential Diagnosis Differential diagnosis: Likely upper respiratory infection, otitis media, viral infection, influenza and pharyngitis Medical Records Attestation: I reviewed the patient's medical records. Discharge Plan Discharge Clinical Impression: Viral syndrome Patient Disposition: Home, Self-Care Condition: Stable Instructions: Antibiotic Form, Viral Syndrome (ED) Patient Language: Danish Prescriptions: New prednisone 50 mg tablet 50 mg PO DAILY Qty: 5 0RF No Action (DME) BreatheRite MDI Spacer Spacer See Rx Instructions .ROUTE .MEDSUPPLY Qty: 1 0RF Rx Instructions: As directed Nexplanon 68 mg implant 1 implant subdermal ONCE Rx Instructions: as a single dose Follow-up/Referrals: PHYSICIAN,SALES REPRESENTATIVE ADVERTISING [Primary Care Provider] - Stand Alone Forms: Work/School Release IP Time of Disposition: 16:34
== END 2024-12-03 16:50 | disposition home or self-care (01) ==
PROVIDERS: Emergency Provider Nurse Practitioner Family
DX: B34.9 Viral infection, unspecified (principal); F17.200 Nicotine dependence, unspecified, uncomplicated; K21.9 Gastro-esophageal reflux disease without esophagitis
CPT/HCPCS: 99213; G0463

== ENCOUNTER 2025-04-04 10:49 | Emergency (ER) | payer SELFPAY ==
--- NOTE | ~2025-04-04 | CT_ITS ---
EXAMINATION: CTA BRAIN/CAROTID DATE: 04/04/2025 13:59 INDICATION: Headache starting after roller coaster ride 4 days prior TECHNIQUE: Computed tomographic angiography (CTA) of the head and neck was performed with 100 mL Omni paque-350 intravenous contrast. Multiplanar reconstructions and maximum intensity projection 3D-recon structions of the carotid arteries and of the intracranial arteries were created by the technologist on a separate workstation. Precontrast CT of the head was also obtained. Automated exposure control and iterative reconstruction technique were employed.The dose-length product was 1483.08 mGy-cm. COMPARISON: None. FINDINGS: Carotid arteries: Visualized portion of the aortic arch and the great vessels arising from the arch are normal in calib er with no stenosis or dissection. There is no evident atherosclerotic plaque with 0% stenosis of the right left carotid bulbs relative to normal distal artery lumen diameter (NASCET criteria). The extr acranial portion of the bilateral vertebral arteries are codominant with no evidence stenosis or diss ection. Mild emphysema the right apex with mild right apical pleural-parenchymal scarring. Cervical s oft tissues are unremarkable. Mild cervical kyphosis with mild spondylosis. Head: No fracture. No acute intracranial hemorrhage, acute infarction or abnormal extra axial fluid collect ion. Ventricles are normal and symmetric. No mass/mass effect. No abnormally enhancing brain lesions on the postcontrast imaging. The orbits, paranasal sinuses and mastoid air cells are normal. Intracranial arteries Vertebral arteries are codominant. There is no hemodynamically significant stenosis in the vertebral, basilar and internal carotid arteries. Both A1 and P1 segments are patent. Diminutive anterior commu nicating and bilateral posterior communicating arteries. There are no aneurysms identified. Cerebral arterial arborization appears symmetric. IMPRESSION: 1. No atherosclerotic plaque with 0% stenosis of the right and left carotid bulbs relative to normal distal artery lumen diameter (NASCET criteria). 2. Normal head CT and cerebral CT angiogram. Reviewed, dictated and finalized at location A. IMPRESSION: 1. No atherosclerotic plaque with 0% stenosis of the right and left carotid bul bs relative to normal distal artery lumen diameter (NASCET criteria). 2. Normal head CT and cerebral CT angiogram.
[2025-04-04 10:49] VITALS: BP 117/65; PULSE 74; RESP 16; TEMP 36.4; O2SAT 100
--- OUTSIDE RECORDS SUMMARY | 2025-04-04 10:54 | XMS_ITS | Clinical Summary ---
Author Organization [employer] [id number] [facility] Address [address] [place] [address] Care Team Providers Care Laminated Plastics Assembler And Gluer Name Role Phone [facility], External Provider Primary Care Provider Un available Allergies No known active allergies Medications ibuprofen (ADVIL;MOTRIN) 100 mg/5 mL suspension Take by mouth every 6 hours as needed for Pain, Mild. Active buPROPion HCl (WELLBUTRIN XL) 150 mg Extended Release 24 hour tablet Take 1 Tablet (150 mg) by mouth daily distributor sales manager. 30 Tablet 3 9 Active etonogestrel (NEXPLANON) [...] 3:20 PM CDT Height 163.8 cm (5' 4.5) 03/12/2019 3:20 PM CDT Body Mass Index 18.42 03/12/2019 3:20 PM CDT Plan of Treatment Health Maintenance Due Date Last Done Comments DTAP/TDAP/TD VACCINES (1 - Tdap) 2012 HEPATITIS B VACCINES (1 of 3 - 19+ 3-dose series) 2012 HPV/Cotest (21-29) 2014 CERVICAL CANCER SCREENING 2023 HPV/Cotest (30-65) 2023 PAP SMEAR 2023 03/12/2019 INFLUENZA VACCINE (#1) 2024 08/21/2019 [...] PM CDT) CASE REPORT Gynecologic Cytology Report Case: [id number] Authorizing Provider: Benita Pathak DO Collected: 03/12/2019 03:56 PM Ordering Location: [facility] Received: 03/12/2019 06:30 PM [place] [address] [facility] First Screen: Stefany Loco Specimen: LB PAP TP PROT, Endocervix 03/16/2019 9:52 AM CDT [facility] Perch Machine Inspector Interpretation Negative For Intraepithelial Lesion Or Malignancy 03/16/2019 9:52 AM CDT [facility] Verified by Stefany Loco on 03/16/2019 at 0952 CDT Comment: Routine follow-up is suggested. Perch Machine Inspector Specimen Adequacy Satisfactory for evaluation, endocervical/trans formation zone component present 03/16/2019 9:52 AM CDT [facility] RECONDITIONING ASSOCIATE Clinical Information Nexplanon in use 03/16/2019 9:52 AM CDT [facility] Perch Machine Inspector Educational Note 03/16/2019 9:52 AM CDT [facility] Comment: Gynecological cytology is a screening procedure subject to both false negative and false positive results. It is most reliable when a satisfactory sample is obtained on a regular repetitive basis. Results must be interpreted in the context of historic and current clinical information. Recommend patient management according to the 2012 ASCCP Consensus Guidelines, ([place]: Cancer J Clin, 62(3); 147-172,2012) EMBEDDED IMAGE 03/16/2019 9:52 AM CDT [facility] Genital SWAB OF ENDOCERVIX / Unknown Collection / Unknown 03/12/2019 3:56 PM CDT 03/12/2019 6:30 PM CDT us Benita Pathak DO PATHOLOGY/CYTOLOGY ORDERABL ES Final Result [facility] CLIA# [id number] [place] [address] from Last 3 Months or Most Recently Relevant to Health Maintenance Insurance Care Teams Laminated Plastics Assembler And Gluer Relationship Specialty Start Date End Date [facility], External Provider [address] [place] [address] PCP - General 03/12/19
--- OUTSIDE RECORDS SUMMARY | 2025-04-04 10:54 | XMS_ITS | Clinical Summary ---
Author Organization [facility] Address [address] [place] [address] Care Team Providers Care Health Care Manager Name Role Phone Kayode Contreras PA-C Primary Care Provide r Source Comments [facility] [employer],non-owned Affiliates and Associated Physician Practices is amultiple site organization consisting of ambulatory clinics and hospital sitesin [place], [place], [place] and [place]. This disclosure is being madepursuant to the Care Everywhere program and may not contain all information available regarding this patient. Last updated 18.[facility] Allergies Active Allergy Reactions Criticality Noted Date Comments Amoxicillin Nausea and/or Vomiting 01/04/2012 Medications * Be aware that medications may not be up to date on this document. Alwaysverify current medications with the patient. 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 Gender Identity Not on file Sexual Orientation Not on file Plan of Treatment Health Maintenance Due Date Last Done Comments PAP SMEAR 1993 HIV SCREENING 2008 HEPATITIS C SCREENING 10/18/2011 DTAP/TDAP/TD VACCINES (1 - Tdap) 2012 HEPATITIS B VACCINE (1 of 3 - 19+ 3-dose series) 2012 COVID-19 VACCINE (1 - 2023-2 5 season) 2024 DEPRESSION SCREENING 11/07/2024 INFLUENZA VACCINE (Season Ended) 2025 08/21/20 19 ZOSTER VACCINE (1 of 2) 2043 HIB VACCINE Aged Out No longer eligi ble based on patient's age to complete this topic HPV VACCINE Aged Out No longer eligi ble based on patient's age to complete this topic MENINGOCOCCAL (Group B) VACC INE SHARED DECISION-MAKING Aged Out No longer eligibl e based on patient's age to complete this topic MENINGOCOCCAL GROUPS A/C/Y/W VACCINE Aged Out No longer eligible b ased on patient's age to complete this topic PNEUMOCOCCAL VACCINE Aged Out No long er eligible based on patient's age to complete this topic Care Teams Health Care Manager Relationship Specialty Start Date End Date Kayode Contreras PA-C [address] [place] [address] PCP - General 06/23/22
--- OUTSIDE RECORDS SUMMARY | 2025-04-04 12:02 | XMS_ITS | Clinical Summary ---
Author Organization [employer] [facility] [facility] Address [address] [place] [address] Care Team Providers Care Assistant Sales Center Manager Name Role Phone [facility], External Provider Primary Care Provider Un available Allergies No known active allergies Medications ibuprofen (ADVIL;MOTRIN) 100 mg/5 mL suspension Take by mouth every 6 hours as needed for Pain, Mild. Active buPROPion HCl (WELLBUTRIN XL) 150 mg Extended Release 24 hour tablet Take 1 Tablet (150 mg) by mouth daily mri technologist. 30 Tablet 3 9 Active etonogestrel (NEXPLANON) [...] CDT) CASE REPORT Gynecologic Cytology Report Case: [id number] Authorizing Provider: Benita Pathak DO Collected: 03/12/2019 03:56 PM Ordering Location: [facility] Received: 03/12/2019 06:30 PM [place] [address] [facility] First Screen: Stefany Loco Specimen: LB PAP TP PROT, Endocervix 03/16/2019 9:52 AM CDT [facility] Water Quality Tester Interpretation Negative For Intraepithelial Lesion Or Malignancy 03/16/2019 9:52 AM CDT [facility] Verified by Stefany Loco on 03/16/2019 at 0952 CDT Comment: Routine follow-up is suggested. Water Quality Tester Specimen Adequacy Satisfactory for evaluation, endocervical/trans formation zone component present 03/16/2019 9:52 AM CDT [facility] SALES DATA ANALYST Clinical Information Nexplanon in use 03/16/2019 9:52 AM CDT [facility] Water Quality Tester Educational Note 03/16/2019 9:52 AM CDT [facility] Comment: Gynecological cytology is a screening [...] [id number],2012) EMBEDDED IMAGE 03/16/2019 9:52 AM CDT [facility] Genital SWAB OF ENDOCERVIX / Unknown Collection / Unknown 03/12/2019 3:56 PM CDT 03/12/2019 6:30 PM CDT us Benita Pathak DO PATHOLOGY/CYTOLOGY ORDERABL ES Final Result [facility] CLIA# [id number] [place] [address] from Last 3 Months or Most Recently Relevant to Health Maintenance Insurance Care Teams Assistant Sales Center Manager Relationship Specialty Start Date End Date [facility], External Provider [address] [place] [address] PCP - General 03/12/19
--- OUTSIDE RECORDS SUMMARY | 2025-04-04 12:02 | XMS_ITS | Clinical Summary ---
Author Organization [facility] Address [address] [place] [address] Care Team Providers Care Conservation Educator Name Role Phone Kayode Contreras PA-C Primary Care Provide r Source Comments [facility] [employer],non-owned Affiliates and Associated Physician Practices is amultiple site organization consisting of ambulatory clinics and hospital sitesin [place], [place], [place] and [place]. This disclosure is being madepursuant to the Care Everywhere program and may not contain all information available regarding this patient. 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
--- NOTE | 2025-04-04 12:20 | ED.GENADULT ---
HPI - General Adult General Chief complaint: Headache Stated complaint: migraine Time Seen by Provider: 04/04/25 11:53 History of Present Illness HPI narrative: This is a 29-year-old female with history of migraines presenting with a headache. Patient says that she was at [employer] [place] riding roller coasters on Tuesday. Lopressor she developed a sharp pulsating pain in her temples that is getting progressively worse over the last 4 days. No loss of consciousness, no visual changes no confusion or neurologic deficits. Patient says her typical migraines are more of a pressure sensation. No fevers chills nausea vomiting diarrhea neck pain chest pain abdominal pain or urinary symptoms. Related Data Home Medications ?Medication ?Instructions ?Recorded ?Confirmed ?Last Taken ?Type etonogestrel 68 mg subdermal 1 implant subdermal ONCE 02/05/21 12/17/22 Unknown History implant (Nexplanon) Allergies Allergy/AdvReac Type Severity Reaction Status Date / Time nitrofurantoin AdvReac Intermediate Nausea Verified 04/04/25 10:52 [facility] Past Medical History Medical History Migraine GERD (gastroesophageal reflux disease) Depression Anemia Allergies Family History Family History Father Alcoholism Cerebrovascular accident Bipolar 1 disorder Schizophrenia Mother Depression Anxiety COPD (chronic obstructive pulmonary disease) DDD (degenerative disc disease) Sibling Asthma Social History Social History Social History: caffeine use- 2 sodas and 1/2 pot of coffee per day Smoking status: Current every day smoker Alcohol intake: current Alcohol use details: social use- wine coolers Substance use: unknown Lack of Transportation: No Lack of Food: Never True Current Housing: I Have Housing Concerned About Future Housing: No Difficulty Paying Gas/Electric Bills: No Difficulty Paying for Meds: No Currently Unemployed: No Education: Trade/Vocational Certificate Difficulty w/ Childcare or Family Care: No Living arrangements: with family Additional living arrangements comments: lives with Fiance and 2 children- 1 M and 1 F Occupation/Education: occupation 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 EYES: EOMI, NOSE: Atraumatic NECK: Trachea midline, no meningismus or neck stiffness RESPIRATORY: No increased rate of breathing clear to auscultation CARDIOVASCULAR: RRR, no peripheral edema ABDOMINAL: Non-distended MUSCULOSKELETAl: No obvious deformities NEURO: Alert. Cranial nerves 2-12 grossly intact. Sensation light touch, motor function cerebellar function intact for 4 extremities. Gait exam was normal. SKIN:: Warm, dry. Normal color PSYCHIATRIC: Normal affect Course Vital Signs Vital signs: Vital Signs Temperature 97.6 F 04/04/25 10:49 Pulse Rate 74 04/04/25 10:49 Respiratory Rate 16 04/04/25 10:49 Blood Pressure 117/65 04/04/25 10:49 Pulse Oximetry 100 04/04/25 10:49 Temperature 97.6 F 04/04/25 10:49 Pulse Rate 74 04/04/25 10:49 Respiratory Rate 16 04/04/25 10:49 Blood Pressure 117/65 04/04/25 10:49 Pulse Oximetry 100 04/04/25 10:49 Medical Decision Making [facility] Narrative Medical decision making narrative: -Course: 29-year-old female presenting progressive headache after going on a roller coaster. On physical exam the patient is uncomfortable but has a normal neurologic exam. CTA without evidence of dissection or intracranial hemorrhage. Patient will be treated with a migraine cocktail. Patient improved with treatment was discharged follow-up with her primary care physician. -DDX includes but is not limited to: Migraine, carotid dissection, intracranial hemorrhage, tension headache Vital Signs Vital Signs: Vital Signs Temperature 97.6 F 04/04/25 10:49 Pulse Rate 74 04/04/25 10:49 Respiratory Rate 16 04/04/25 10:49 Blood Pressure 117/65 04/04/25 10:49 Pulse Oximetry 100 04/04/25 10:49 Temperature 97.6 F 04/04/25 10:49 Pulse Rate 74 04/04/25 10:49 Respiratory Rate 16 04/04/25 10:49 Blood Pressure 117/65 04/04/25 10:49 Pulse Oximetry 100 04/04/25 10:49 Lab Data 04/04/25 13:25 04/04/25 13:25 Labs: Lab Results 04/04/25 04/04/2504/04/25 Range/Units 12:28 13:25 13:32 WBC 6.5 (4.5-10.0) K/mm3 RBC 4.76 (4.2-5.4) M/mm3 Hgb 15.1 H (12.0-15.0) g/dL Hct 47.6 H (37.0-47.0) % MCV 100.0 (80-100) fl MCH 31.7 (26-34) pg MCHC 31.7 L (32-36) g/dl RDW 13.0 (11.5-14.5) % Plt Count 137 L (150-375) k/mm3 MPV 12.7 H (7.4-10.4) fl Immature Gran % (Auto) 0.3 (0-0.5) % Neut % (Auto) 63.1 (45.5-73.1) % Lymph % (Auto) 29.7 (18.3-44.2) % Dickinson % (Auto) 5.7 (2.6-8.5) % Eos % (Auto) 0.6 (0-4.4) % Baso % (Auto) 0.6 (0.2-1.2) % Lymph # (Auto) 1.94 (0.9-3.2) K/mm3 Dickinson # (Auto) 0.4 (0.1-0.6) K/mm3 Eos # (Auto) 0.0 (0-0.3) K/mm3 Baso # (Auto) 0.0 (0.0-0.1) K/mm3 Abs Immat Gran (auto) 0.02 (0.00-0.031) K/mm3 Absolute Neuts (auto) 4.1 (1.3-6.7) K/mm3 Absolute Nucleated RBC 0.000 (0.0-0.012) K/mm3 Nucleated RBC % 0.0 (0.0-0.2) % Sodium 141 (137-145) mmol/L Potassium 4.2 (3.4-5.0) mmol/L Chloride 107 (98-107) mmol/L Carbon Dioxide 26 (22-30) mmol/L Anion Gap 8 (4-12) mmol/L BUN 5 L (7-17) mg/dL Creatinine 0.63 L (0.7-1.0) mg/dL Estim Creat Clear Calc 95 ml/min Estimated GFR > 60 (59 - ) Glucose 87 (65-110) mg/dL Calcium 9.3 (8.4-10.2) mg/dL Total Bilirubin 1.1 (0.2-1.3) mg/dL AST 24 (14-36) U/L ALT 15 (6-35) U/L Alkaline Phosphatase 42 (38-126) U/L Total Protein 7.0 (6.3-8.2) g/dL Albumin 4.8 (3.5-5.1) g/dL Urine Color Yellow (Yellow) Urine Appearance Clear (Clear) Urine pH 7.5 (5.0-9.0) Ur Specific Norris 1.012 (1.001-1.035) Urine Protein Negative (Negative) mg/dL Urine Glucose (UA) Negative (Negative) mg/dL Urine Ketones Negative (Negative) mg/dL Ur Blood (Man) Negative (Negative) Urine Nitrate Positive H (Negative) Urine Bilirubin Negative (Negative) Urine Urobilinogen 0.2 (<2.0) mg/dL Add Ur Microanalysis Reviewed Leukocyte Esterase Rfl 2+ H (Negative) JANET/UL Urine RBC 0-2 (0-2) /hpf Urine WBC 0-5 (0-3) /hpf Ur Squamous Epith Cells Few (Few) /hpf Urine Bacteria 4+ H /hpf Urine Casts 0-2 POC Urine HCG, Qual Negative (Negative) Discharge Plan Discharge Clinical Impression: Migraine Patient Disposition: Home Condition: Stable Instructions: Antibiotic Form, Acute Headache (ED) Additional Instructions: You were seen in the emergency department with headache. Please use Motrin/Tylenol as needed. Please follow-up with your primary care physician for further management. Patient Language: Ghanaian Prescriptions: No Action prednisone 50 mg tablet 50 mg PO DAILY Qty: 5 0RF (DME) B[facility]heRite MDI Spacer Spacer See Rx Instructions .ROUTE .MEDSUPPLY Qty: 1 0RF Rx Instructions: As directed Nexplanon 68 mg implant 1 implant subdermal ONCE Rx Instructions: as a single dose Follow-up/Referrals: PHYSICIAN,GATE WATCHMAN [Primary Care Provider] -
[2025-04-04] MEDS: HYDROmorphone HCL INJ (*CRX) 2 MG/ML VIAL 0.5 MG IV PUSH (13:25)
[2025-04-04 13:35] LABS: BEDSIDEPREGUCG Negative (Negative)
[2025-04-04 13:39] LABS: Basophils Percent Auto 0.6 % (0.2-1.2); Eosinophils Percent Auto 0.6 % (0-4.4); Hematocrit 47.6 % (37.0-47.0); Hemoglobin 15.1 g/dL (12.0-15.0); Immature Granulocyte Absolute 0.02 K/mm3 (0.00-0.031); Immature Granulocyte Percent A 0.3 % (0-0.5); Lymphocytes Absolute Auto 1.94 K/mm3 (0.9-3.2); Lymphocytes Percent Auto 29.7 % (18.3-44.2); Mean Corpuscular HGB Conc 31.7 g/dl (32-36); Mean Corpuscular Hemoglobin 31.7 pg (26-34); Mean Platelet Volume 12.7 fl (7.4-10.4); Monocytes Absolute Auto 0.4 K/mm3 (0.1-0.6); Monocytes Percent Auto 5.7 % (2.6-8.5); Neutrophils Absolute Auto 4.1 K/mm3 (1.3-6.7); Neutrophils Percent Auto 63.1 % (45.5-73.1); Platelet Count Result 137 k/mm3 (150-375); Red Blood Count 4.76 M/mm3 (4.2-5.4); White Blood Count 6.5 K/mm3 (4.5-10.0)
[2025-04-04 13:48] LABS: Alanine Aminotransferase 15 U/L (6-35); Albumin Level 4.8 g/dL (3.5-5.1); Alkaline Phosphatase 42 U/L (38-126); Anion Gap 8 mmol/L (4-12); Aspartate Amino Transferase 24 U/L (14-36); Bilirubin,Total 1.1 mg/dL (0.2-1.3); Blood Urea Nitrogen 5 mg/dL (7-17); Calcium 9.3 mg/dL (8.4-10.2); Carbon Dioxide 26 mmol/L (22-30); Chloride 107 mmol/L (98-107); Estimated CRCL calculation 95 ml/min; Estimated Glomerular Filt Rate > 60; Glucose 87 mg/dL (65-110); Potassium 4.2 mmol/L (3.4-5.0); Sodium 141 mmol/L (137-145)
[2025-04-04 14:21] LABS: Add Urine Microscopic? YES; Appearance Urine Clear (Clear); Bacteria Urine 4+ /hpf; Bilirubin Urine Negative (Negative); Blood Urine Negative (Negative); Color Urine Yellow (Yellow); Glucose Urine UA Negative (Negative); Ketones Urine Negative (Negative); Leukocyte Esterase Ur 2+ LEU/UL (Negative); Need Manual Microscopic Reviewed; Nitrate Urine Positive (Negative); Non Pathogenic Casts 0-2; Protein Urine Negative (Negative); RBC Urine 0-2 /hpf (0-2); Specific Grav Ur 1.012 (1.001-1.035); Squamous Epithelial Cell Urine Few /hpf (Few); Urobilinogen Urine 0.2 mg/dL (<2.0); WBC Urine 0-5 /hpf (0-3); pH Urine 7.5 (5.0-9.0)
[2025-04-04] MEDS: diphenhydrAMINE HCl INJ 50 MG/ML VIAL 25 MG IV PUSH (14:55)
[2025-04-04] MEDS: PROCHLORPERAZINE EDISYLATE 10 MG/2 ML VIAL IM (14:55)
[2025-04-04] MEDS: KETOROLAC 15 MG/ML VIAL (*BKC) IV PUSH (14:55)
[2025-04-04] MEDS: SODIUM CHLORIDE 0.9% IV 1,000 ML 999 ML IV CONT (14:56)
[2025-04-04] MEDS: ACETAMINOPHEN 500 MG TABLET 1000 MG PO (14:56)
[2025-04-04 15:38] VITALS: BP 120/60; PULSE 80; RESP 16; O2SAT 100
== END 2025-04-04 15:44 | disposition home or self-care (01) ==
PROVIDERS: Emergency Provider Emergency Medicine
DX: G43.909 Migraine, unspecified, not intractable, without status migrainosus (principal); K21.9 Gastro-esophageal reflux disease without esophagitis; F17.200 Nicotine dependence, unspecified, uncomplicated; Z86.2 Personal history of diseases of the blood and blood-forming organs and certain disorders involving the immune mechanism
CPT/HCPCS: 36415; 70496; 70498; 80053; 81001; 81025; 85025; 87086; 87186; 96361; 96372; 96374; 96375; 99284; A9270; J0780; J1171; J1200; J1885; J7030; Q9967

== ENCOUNTER 2025-04-05 10:33 | Emergency (ER) | payer SELFPAY ==
[2025-04-05 10:38] VITALS: BP 116/80; PULSE 81; RESP 16; TEMP 36.9; O2SAT 100
--- OUTSIDE RECORDS SUMMARY | 2025-04-05 10:46 | XMS_ITS | Clinical Summary ---
Author Organization [facility] Address [address] [place] [address] Care Team Providers Care Mold Dresser Name Role Phone Kayode Contreras PA-C Primary Care Provide r Source Comments [facility],non-owned Affiliates and Associated Physician Practices is amultiple site organization consisting of ambulatory clinics and hospital sitesin [place], [place], [place] and [place]. This disclosure is being madepursuant to the Care Everywhere program and may not contain all information available regarding this patient. 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
--- OUTSIDE RECORDS SUMMARY | 2025-04-05 10:46 | XMS_ITS | Clinical Summary ---
Author Organization [employer] [id number] [facility] Address [address] [place] [address] Care Team Providers Care Production Quality Analyst Name Role Phone [facility], External Provider Primary Care Provider Un available Allergies No known active allergies Medications ibuprofen (ADVIL;MOTRIN) 100 mg/5 mL suspension Take by mouth every 6 hours as needed for Pain, Mild. Active buPROPion HCl (WELLBUTRIN XL) 150 mg Extended Release 24 hour tablet Take 1 Tablet (150 mg) by mouth daily early learning teacher. 30 Tablet 3 9 Active etonogestrel (NEXPLANON) [...] CDT) CASE REPORT Gynecologic Cytology Report Case: [id number] Authorizing Provider: Benita Pathak DO Collected: 03/12/2019 03:56 PM Ordering Location: [facility] Received: 03/12/2019 06:30 PM [place] [id number] [email or web address] First Screen: Stefany Loco Specimen: LB PAP TP PROT, Endocervix 03/16/2019 9:52 AM CDT [facility] Title Officer Interpretation Negative For Intraepithelial Lesion Or Malignancy 03/16/2019 9:52 AM CDT [facility] Verified by Stefany Loco on 03/16/2019 at 0952 CDT Comment: Routine follow-up is suggested. Title Officer Specimen Adequacy Satisfactory for evaluation, endocervical/trans formation zone component present 03/16/2019 9:52 AM CDT [facility] FIRE EXTINGUISHER MECHANIC Clinical Information Nexplanon in use 03/16/2019 9:52 AM CDT [facility] Title Officer Educational Note 03/16/2019 9:52 AM CDT [facility] Comment: Gynecological cytology is a [...] [id number]) EMBEDDED IMAGE 03/16/2019 9:52 AM CDT [facility] Genital SWAB OF ENDOCERVIX / Unknown Collection / Unknown 03/12/2019 3:56 PM CDT 03/12/2019 6:30 PM CDT us Benita Pathak DO PATHOLOGY/CYTOLOGY ORDERABL ES Final Result [facility] CLIA# [id number] [place] [address] from Last 3 Months or Most Recently Relevant to Health Maintenance Insurance Care Teams Production Quality Analyst Relationship Specialty Start Date End Date [facility], External Provider [address] [place] [address] PCP - General 03/12/19
[2025-04-05 11:42] VITALS: BP 104/62; PULSE 77; RESP 14; O2SAT 100
--- OUTSIDE RECORDS SUMMARY | 2025-04-05 12:24 | XMS_ITS | Clinical Summary ---
Author Organization [employer] [id number] [facility] Address [address] [place] [address] Care Team Providers Care Postdoctoral Scientist Name Role Phone [facility], External Provider Primary Care Provider Un available Allergies No known active allergies Medications ibuprofen (ADVIL;MOTRIN) 100 mg/5 mL suspension Take by mouth every 6 hours as needed for Pain, Mild. Active buPROPion HCl (WELLBUTRIN XL) 150 mg Extended Release 24 hour tablet Take 1 Tablet (150 mg) by mouth daily ironer machine. 30 Tablet 3 9 Active etonogestrel (NEXPLANON) [...] CDT) CASE REPORT Gynecologic Cytology Report Case: [id number] Authorizing Provider: Benita Pathak DO Collected: 03/12/2019 03:56 PM Ordering Location: [facility] Received: 03/12/2019 06:30 PM [place] [address] [facility] First Screen: Stefany Loco Specimen: LB PAP TP PROT, Endocervix 03/16/2019 9:52 AM CDT [facility] Corrosion Control Specialist Interpretation Negative For Intraepithelial Lesion Or Malignancy 03/16/2019 9:52 AM CDT [facility] Verified by Stefany Loco on 03/16/2019 at 0952 CDT Comment: Routine follow-up is suggested. Corrosion Control Specialist Specimen Adequacy Satisfactory for evaluation, endocervical/trans formation zone component present 03/16/2019 9:52 AM CDT [facility] CLINICAL LAB TECHNOLOGIST Clinical Information Nexplanon in use 03/16/2019 9:52 AM CDT [facility] Corrosion Control Specialist Educational Note 03/16/2019 9:52 AM CDT [facility] Comment: Gynecological cytology is a screening [...] [id number]) EMBEDDED IMAGE 03/16/2019 9:52 AM CDT [facility] Genital SWAB OF ENDOCERVIX / Unknown Collection / Unknown 03/12/2019 3:56 PM CDT 03/12/2019 6:30 PM CDT us Benita Pathak DO PATHOLOGY/CYTOLOGY ORDERABL ES Final Result [facility] CLIA# [id number] [address] [place] [address] from Last 3 Months or Most Recently Relevant to Health Maintenance Insurance Care Teams Postdoctoral Scientist Relationship Specialty Start Date End Date [facility], External Provider [address] [place] [address] PCP - General 03/12/19
--- OUTSIDE RECORDS SUMMARY | 2025-04-05 12:24 | XMS_ITS | Clinical Summary ---
Author Organization [facility] [employer] Address [address] [place] [address] Care Team Providers Care Sergeant Missile Crewman Name Role Phone Kayode Contreras PA-C Primary Care Provide r Source Comments [facility] [employer],non-owned Affiliates and Associated Physician Practices is amultiple site organization consisting of ambulatory clinics and hospital sitesin [place], [place], [place] and [place]. This disclosure is being madepursuant to the Care Everywhere program and may not contain all information available regarding this patient. Last updated 18.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
--- NOTE | 2025-04-05 12:37 | ED.GENADULT ---
HPI - General Adult General Chief complaint: Headache Stated complaint: migraine for 5 days, swollen left eye Time Seen by Provider: 04/05/25 11:55 History of Present Illness HPI narrative: This is a 29-year-old female with history of migraines presenting for migraine pain. Use migraine has been going on for 5 days, started after she was on a roller coaster ride a bike 4 days ago. Yesterday she was seen in our ED and had a negative CTA. She was treated with migraine cocktail with significant improvement. She was discharged home and then when she woke up today while symptoms in her heard. Patient states that her typical migraines a stabbing pulse and pain behind her right eye. She says this is different today says it is a pulsating feeling behind both of her eyes. She says the left eye was swollen this morning although that has now resolved. She has not had any visual changes fevers neck pain trauma neurologic deficits or altered mental status. She has not followed up with primary care physician or neurologist. Patient notes she is under significant amount of stress at work as she does not get along with her boss. Related Data Home Medications ?Medication ?Instructions ?Recorded ?Confirmed ?Last Taken ?Type etonogestrel 68 mg subdermal 1 implant subdermal ONCE 02/05/21 12/17/22 Unknown History implant (Nexplanon) Allergies Allergy/AdvReac Type Severity Reaction Status Date / Time nitrofurantoin AdvReac Intermediate Nausea Verified 04/05/25 11:42 PMFSH Past Medical History Medical History Migraine GERD (gastroesophageal reflux disease) Depression Anemia Allergies Family History Family History Father Alcoholism Cerebrovascular accident Bipolar 1 disorder Schizophrenia Mother Depression Anxiety COPD (chronic obstructive pulmonary disease) DDD (degenerative disc disease) Sibling Asthma Social History Social History Social History: caffeine use- 2 sodas and 1/2 pot of coffee per day Smoking status: Current every day smoker Alcohol intake: current Alcohol use details: social use- wine coolers Substance use: unknown Lack of Transportation: No Lack of Food: Never True Current Housing: I Have Housing Concerned About Future Housing: No Difficulty Paying Gas/Electric Bills: No Difficulty Paying for Meds: No Currently Unemployed: No Education: Trade/Vocational Certificate Difficulty w/ Childcare or Family Care: No Living arrangements: with family Additional living arrangements comments: lives with Fiance and 2 children- 1 M and 1 F Occupation/Education: occupation 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 Head: atraumatic. EYES: EOMI, NOSE: Atraumatic NECK: Trachea midline RESPIRATORY: No increased rate of breathing CARDIOVASCULAR: RRR, ABDOMINAL: Non-distended MUSCULOSKELETAl: No obvious deformities NEURO: Alert. Cranial nerves 2-12 grossly intact. Sensation light touch, motor function cerebellar function intact for 4 extremities. Gait exam was normal. SKIN:: Warm, dry. Normal color PSYCHIATRIC: Normal affect Course Vital Signs Vital signs: Vital Signs Temperature 98.4 F 04/05/25 10:38 Pulse Rate 81 04/05/25 10:38 Respiratory Rate 16 04/05/25 10:38 Blood Pressure 116/80 04/05/25 10:38 Pulse Oximetry 100 04/05/25 10:38 Oxygen Delivery Room Air 04/05/25 10:38 Temperature 98.4 F 04/05/25 10:38 Pulse Rate 77 04/05/25 11:42 Respiratory Rate 14 04/05/25 11:42 Blood Pressure 104/62 04/05/25 11:42 Pulse Oximetry 100 04/05/25 11:42 Oxygen Delivery Room Air 04/05/25 10:38 Medical Decision Making MDM Narrative Medical decision making narrative: -Course: 29-year-old female with history migraines presenting with a frontal headache behind her right and left eyes. Patient has a normal neurologic exam. Patient was seen here yesterday and had a CTA of her brain and carotid was unremarkable. Patient says this feels different from her typical migraine however typical migraine is pain behind her right eye and this is pain behind both eyes and sounds very similar to me. Other more serious causes of headache were considered such as subarachnoid hemorrhage, meningitis, venous sinus thrombosis those do not fit her clinical picture. patient does not have risk factors for pseudotumor cerebri or visual deficits. no Jaw claudication/tenderness over the jainism to make me think this is temporal arteritis. Acute angle closure Glaucoma was ruled out with normal intra-ocular pressures. No dissection on the CTA. Patient was feeling better after migraine cocktail. I would like her follow-up with neurology for further management as this becoming a recurrent problem. This was discussed with the patient and her boyfriend and they are in agreement. Patient discharged -DDX includes but is not limited to: Migraine, tension headache sinusitis subarachnoid hemorrhage -Co-morbidities complicating care:migraines. Vital Signs Vital Signs: Vital Signs Temperature 98.4 F 04/05/25 10:38 Pulse Rate 81 04/05/25 10:38 Respiratory Rate 16 04/05/25 10:38 Blood Pressure 116/80 04/05/25 10:38 Pulse Oximetry 100 04/05/25 10:38 Oxygen Delivery Room Air 04/05/25 10:38 Temperature 98.4 F 04/05/25 10:38 Pulse Rate 77 04/05/25 11:42 Respiratory Rate 14 04/05/25 11:42 Blood Pressure 104/62 04/05/25 11:42 Pulse Oximetry 100 04/05/25 11:42 Oxygen Delivery Room Air 04/05/25 10:38 Discharge Plan Discharge Clinical Impression: Migraine Patient Disposition: Home Condition: Stable Instructions: Antibiotic Form, Acute Headache (ED) Additional Instructions: Using emergency department for migraine. Please continue using Motrin Tylenol as needed. Please follow-up with primary care physician listed below and the neurologist for further management. If you develop any new or worsening symptoms please return to the ED for re-evaluation. Patient Language: Croatian Prescriptions: No Action prednisone 50 mg tablet 50 mg PO DAILY Qty: 5 0RF (DME) [employer] MDI Spacer Spacer See Rx Instructions .ROUTE .MEDSUPPLY Qty: 1 0RF Rx Instructions: As directed Nexplanon 68 mg implant 1 implant subdermal ONCE Rx Instructions: as a single dose Follow-up/Referrals: Lobo Palacios MD [Physician] - 1 Week (Migraines ) Donnell Bal MD [Physician] - 1 Week (Establish pcp ) UNKNOWN,DOCTOR [Primary Care Provider] -
[2025-04-05] MEDS: SODIUM CHLORIDE 0.9% IV 1,000 ML 999 ML IV CONT (12:52)
[2025-04-05] MEDS: KETOROLAC 15 MG/ML VIAL (*BKC) IV PUSH (12:53)
[2025-04-05] MEDS: dexAMETHasone SOD PHOS INJ 10 MG/ML 1 ML VIAL IV PUSH (12:57)
[2025-04-05] MEDS: PROCHLORPERAZINE EDISYLATE 10 MG/2 ML VIAL IV PUSH (12:57)
[2025-04-05] MEDS: diphenhydrAMINE HCl INJ 50 MG/ML VIAL 25 MG IV PUSH (12:57)
[2025-04-05] MEDS: ACETAMINOPHEN 500 MG TABLET 1000 MG PO (12:58)
== END 2025-04-05 13:56 | disposition home or self-care (01) ==
PROVIDERS: Emergency Provider Emergency Medicine
DX: G43.909 Migraine, unspecified, not intractable, without status migrainosus (principal); K21.9 Gastro-esophageal reflux disease without esophagitis
CPT/HCPCS: 96361; 96374; 96375; 99284; A9270; J0780; J1100; J1200; J1885; J7030